=== PATIENT | female | born 1950 | race African-American/Black ===

== ENCOUNTER 2017-08-01 12:56 | Emergency (ER) | payer MEDICARE, OTHER ==
[~2017-08-01] VITALS: Ht 175.3 cm; Wt 68.0 kg
[~2017-08-01 12:56] MED LIST: DEXILANT30 MG PO; GLIMEPIRIDE4 MG PO; LISINOPRIL10 MG PO; NOVOLIN N100 UNIT/1
[2017-08-01 13:39] LABS: BASOPHILS % 0.5 % (0.0-1.0); EOSINOPHILS % 0.3 % (0.0-6.0); HEMOGLOBIN 15.9 g/dL (12.0-16.0); LYMPHOCYTES # (AUTO) 1.7 (1.0-3.2); LYMPHOCYTES % 29.8 % (18.0-39.1); MEAN CORPUSCULAR HEMOGLOBIN 30.7 pg (28-32); MEAN CORPUSCULAR HGB CONC 36.1 g/dL (31-35); MEAN CORPUSCULAR VOLUME 84.9 fL (81-99); MONOCYTES # (AUTO) 0.3 (0.2-0.8); MONOCYTES % 4.3 % (4.4-11.3); NEUTROPHILS # (AUTO) 3.7 (2.1-6.9); NEUTROPHILS % 64.4 % (38.7-80.0); PLATELET COUNT 237 x10e3/uL (140-360); RED BLOOD COUNT 5.18 x10e6/uL (3.6-5.1); RED CELL DISTRIBUTION WIDTH 12.7 % (11.7-14.4)
[2017-08-01 14:01] LABS: ALANINE AMINOTRANSFERASE 56 IU/L (0-55); ALBUMIN 4.2 g/dL (3.5-5.0); ALBUMIN/GLOBULIN RATIO 1.2 (0.8-2.0); ALKALINE PHOSPHATASE 107 IU/L (40-150); ANION GAP 15.7 mmol/L (8-16); BLOOD UREA NITROGEN 11 mg/dL (7-26); BUN/CREATININE RATIO 11 (6-25); CALCIUM 9.9 mg/dL (8.4-10.2); CARBON DIOXIDE 24 mmol/L (22-29); CHLORIDE 101 mmol/L (98-107); CREATININE, SERUM 1.04 mg/dL (0.57-1.11); EST GLOMERULAR FILTRATION RATE > 60 ML/MIN (60-); POTASSIUM 3.7 mmol/L (3.5-5.1); SODIUM 137 mmol/L (136-145)
[2017-08-01 14:05] LABS: GLUCOSE 414 mg/dL (74-118)
[2017-08-01 14:22] LABS: AMPHETAMINES SCREEN,URINE NEGATIVE (NEGATIVE); BENZODIAZEPINES SCREEN,URINE NEGATIVE (NEGATIVE); PHENCYCLIDINE SCREEN,URINE NEGATIVE (NEGATIVE)
[2017-08-01 14:23] LABS: CLARITY,URINE CLEAR (CLEAR); COLOR,URINE YELLOW (YELLOW); KETONES,URINE NEGATIVE (NEGATIVE); LEUKOCYTE ESTERASE ,URINE NEGATIVE (NEGATIVE); NITRITE,URINE NEGATIVE (NEGATIVE); PROTEIN,URINE DIPSTICK NEGATIVE (NEGATIVE); URINE UROBILINOGEN 0.2 mg/dL (0.2 - 1)
[2017-08-01 14:24] LABS: BILIRUBIN,URINE NEGATIVE (NEGATIVE)
[2017-08-01 14:28] LABS: EPITHELIAL CELLS,URINE FEW /LPF; MUCUS,URINE FEW (RARE); RBC,URINE 0-5 /HPF (0-5); WBC,URINE (MAN) 0-5 /HPF (0-5)
[2017-08-01] MEDS ORDERED: KETOROLAC TROMETHAMINE 30 MG/ML VIAL IV STA (14:51)
[2017-08-01] MEDS ORDERED: INSULIN LISPRO 100 UNIT/1 ML 3ML VIAL SQ STA (14:51)
[2017-08-01] MEDS ORDERED: SODIUM CHLORIDE 0.9% 1000ML 1,000 ML IV STA (14:51)
[2017-08-01] MEDS ORDERED: LORAZEPAM INJ 2 MG/ML VIAL IV ONE (15:00)
[2017-08-01] MEDS ORDERED: MORPHINE SULFATE 2 MG/ML SYR IV STA (16:30)
[2017-08-01] MEDS ORDERED: ONDANSETRON HCL INJ 2 MG/ML VIAL IV STA (16:30)
[2017-08-01 17:04] VITALS: BP 174/99
== END 2017-08-01 17:14 | disposition home or self-care (01) ==
LOC: ER 12:56
DX: M54.31 Sciatica, right side (principal); E11.65 Type 2 diabetes mellitus with hyperglycemia; I10 Essential (primary) hypertension
CPT/HCPCS: 36415; 80053; 80307; 81001; 82948; 85025; 93005; 99284; J1885; J2060; J2270; J2405; J7030

== ENCOUNTER → 2018-06-27 | Day surgery (SDC) | payer MEDICARE, OTHER ==
[~2018-06-27] MED LIST changes: +AMLODIPINE BESYL5 MG PO; +CALCIUM PO; +GABAPENTIN300 MG PO; +GLUCAGON FOR INJ 1 MG VIAL ONE; +HUMULIN N100 UNITS/ SQ; +IBUPROFEN200 MG PO; +MIDAZOLAM HCL 2 MG/2 ML VIAL ONE; +PROPOFOL IV EMULSION 10 MG/ML 50 ML VIAL ONE; +ULTRAM50 MG PO
--- OUTSIDE RECORDS SUMMARY | 2018-06-27 06:25 | XMS REPORT ---
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 Allergies, Adverse Reactions, Alerts Allergy Name Allergy Type Status Severity Reaction(s) Onset Date Inactive Date Treating Clinician Comments No Known Allergies DA Active U 2015-09-13 00:00:00 Medications This patient has no known medications.
--- OUTSIDE RECORDS SUMMARY | 2018-06-27 06:25 | XMS REPORT | Summary of Care ---
Author Author [facility] Address Unknown Phone Unavailable Encounter Dannyr_bolivarelmira(MICHAEL) [id number] Date(s): 09/01/17 - 09/30/17 [facility] Encounter Diagnosis Radiculopathy, lumbar region (Final) - 10/08/17 Low back pain (Final) - Muscle weakness (generalized) (Final) - Stiffness of unspecified joint, not elsewhere classified (Final) - Difficulty in walking, not elsewhere classified (Final) - Discharge Disposition: Home or Self Care Attending Physician: Tahira Martins MD Vital Signs No data available for this section Problem List No data available for this section Allergies, Adverse Reactions, Alerts No data available for this section Medications No data available for this section Results No data available for this section Immunizations No data available for this section Procedures No data available for this section Social History No data available for this section Assessment and Plan No data available for this section
--- OUTSIDE RECORDS SUMMARY | 2018-06-27 06:25 | XMS REPORT | Summary of Care ---
Author Author [facility] [place] Organization [facility] [place] Address Unknown Phone Unavailable Encounter HQ Encntr_alielmira(FIN) [id number] Date(s): 08/29/17 - 08/29/17 [facility] [place] [address] [place] [address] [phone] Encounter Diagnosis Spinal stenosis, lumbosacral region (Final) - 09/02/17 Spinal stenosis, lumbar region without neurogenic claudication (Final) - Intervertebral disc disorders with radiculopathy, lumbosacral region (Final) - Discharge Disposition: Home or Self Care Attending Physician: Tahira Martins MD Referring Physician: Tahira Martins MD Vital Signs No [...]
--- OUTSIDE RECORDS SUMMARY | 2018-06-27 06:25 | XMS REPORT | Continuity of Care Document ---
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 Active 07/29/2017 [facility] [place] Spinal stenosis, lumbar region without neurogenic claudication 03/18/2018 [facility] [place] Intervertebral disc disorders with radiculopathy, lumbosacral region 03/18/2018 [facility] [place] Low back pain 04/19/2018 [facility] [place] Muscle weakness 04/19/2018 [facility] [place] Stiffness of unspecified joint, not elsewhere classified 04/19/2018 [facility] [place] Difficulty in walking, not elsewhere classified 04/19/2018 [facility] [place] Medications Medication Details Route Status Patient Instructions Ordering Provider Order Date Source Dexlansoprazole (Dexilant) 30 Mg Patric. Three Times A Day Active THERAPEUTIC INTERCHANGED WITH PROTONIX PER [facility] Glimepiride 4 Mg Tablet Daily [facility] Lisinopril 10 Mg Tablet Daily [facility] Nph, Human Insulin Isophane (Novolin N) 100 Unit/1 Ml Vial [facility] Allergies, Adverse Reactions, Alerts Substance Category Reaction Severity Reaction type Status Date Reported Comments Source Immunizations Immunization Date Given Site Status Last Updated Comments Source Results Order Name Results Value Reference Range Date Interpretation Comments Source Liver US Liver US EXAM: Hepatic ultrasound. CLINICAL HX: Hepatitis C. Age: 67 years. Gender: Female. TECHNIQUE: Grayscale and Doppler sonogram of the liver. COMPARISON: None. FINDINGS: Midline structures: -- Pancreas: Visualized portion is unremarkable. -- Aorta: Visualized portion is unremarkable. -- IVC: Visualized portion is unremarkable. Liver: -- Parenchyma: Homogenous echotexture. -- Contour: Smooth. -- Length: 14.2 cm. -- Other: None. Hepatic vessels: -- Portal veins: Normal directional flow. Main portal vein measures 0.8 cm. -- Hepatic veins: Normal directional flow. -- Hepatic artery: Resistive index 0.55. Gallbladder: -- Intraluminal gallstones: Negative. -- Wall: No thickening. -- Sonographic Boland sign: Negative. -- Other: None. Common bile duct: -- Diameter: 2.3 cm. Other: Empty right renal fossa. Right kidney is likely in the pelvis that is not well evaluated. Left kidney is present in the left renal fossa. IMPRESSION: 1. Unremarkable appearance of the liver. 2. Likely pelvic location of the right kidney. If further evaluation is desired, consider cross-sectional imaging. 11/26/2017 - - Read by: Rajendra James MD Dictated Date/time: 11/26/17 13:19 Electronically Signed by: Rajendra James MD 11/26/17 15:52 FINAL REPORT NED [facility] Spine lumbar wo contrast MRI Spine lumbar wo contrast MRI EXAM: MRI LUMBAR SPINE WITHOUT CONTRAST DATE: 08/29/2017 1:17 PM CDT . ORDERING PHYSICIAN: Tahira Martins MD CLINICAL INDICATION: M54.16 Radiculopathy, lumbar region - M54.16 Radiculopathy, lumbar region; TECHNIQUE: Multiplanar, multisequence MRI lumbar spine without IV contrast COMPARISON: July 29, 2017 lumbar x-rays FINDINGS: For the purposes of enumeration, the lowest well formed intervertebral disc was counted as L5-S1 on this exam. INTRASPINAL CONTENTS/CONUS: The conus terminates at L1-L2. No definite dural based lesion. VERTEBRAE: The vertebrae are normal in height. There is loss of normal lordosis.. No focal suspicious bone marrow signal abnormality. PARASPINAL SOFT TISSUES: No edema or definite masses. No aortic aneurysm. DISC SPACES, SPINAL CANAL, AND NEURAL FORAMINA: The lumbar pedicles are short. T12-L1. Intervertebral disc height and signal are maintained. Posterior elements are normal. There is no stenosis. L1-L2. Dehydrated disc with diffuse disc bulge. Facets are mildly enlarged. Central canal measures 10 mm straight lateral recesses are patent. Foraminal disc bulge narrows the right neural foramen with but does not contact the exiting L1 nerve root. L2-L3. Dehydrated disc with small diffuse disc bulge. There is bilateral facet hypertrophy. Central canal measures 10 mm. Lateral recesses are patent. Foraminal disc bulge narrows the neural foramina without contacting the exiting L2 nerve roots. L3-L4. Desiccated disc with circumferential disc osteophyte complex. Facets are unremarkable. Central canal measures 8 mm. Left lateral recess is narrowed with no mass effect on the descending L4 nerve root. There is mild narrowing of the neural foramina with no contact of the exiting L3 nerve roots. L4-L5. Dehydrated disc with diffuse disc bulge and annular fissuring. There is left greater than right facet hypertrophy. Central canal measures 8 mm. Lateral recesses are narrowed with disc and facets contacting the L5 nerve roots. There is moderate narrowing of the neural foramina with disc and/or facets minimally contacting the exiting L4 nerve roots bilaterally. L5-S1. Dehydrated disc with diffuse disc bulge and superimposed broad-based 5 mm central zone disc protrusion. There is bilateral facet hypertrophy. Central canal measures 3 mm with crowded cauda equina. Lateral recesses are effaced, and disc protrusion is compressing the descending right S1 nerve root. There is moderate to severe right and [id number] left neural foramen narrowing. IMPRESSION: 1. Severe L5-S1 spinal stenosis and right lateral recess stenosis. Disc protrusion is compressing the right descending S1 nerve root 2. Mild L3-4 and L4-5 central canal stenosis without cauda equina mass effect 3. Please see additional comments above 08/29/2017 - - Read by: Austen Malcolm MD Dictated Date/time: 08/29/17 15:54 Electronically Signed by: Austen Malcolm MD 08/29/17 16:00 FINAL REPORT NED [facility] Automated urine sediment leukocyte count by microscopy (number/high power field) Automated urine sediment leukocyte count by microscopy (number/high power field) null 0 - 5 08/01/2017 [facility] Bacteria detection in urine sediment by light microscopy Bacteria detection in urine sediment by light microscopy NONE NONE 08/01/2017 [facility] Barbiturates screen, urine Barbiturates screen, urine NEGATIVE NEGATIVE 08/01/2017 [facility] Epithelial cells detection in urine sediment by light microscopy Epithelial cells detection in urine sediment by light microscopy FEW NONE 08/01/2017 [facility] Erythrocytes detection in urine sediment by light microscopy Erythrocytes detection in urine sediment by light microscopy null 0 - 5 08/01/2017 [facility] Mucus detection in urine sediment by light microscopy Mucus detection in urine sediment by light microscopy FEW RARE 08/01/2017 [facility] Specific gravity of Urine by Test strip Specific gravity of Urine by Test strip 1.010 1.010 - 1.025 08/01/2017 [facility] Urine amphetamines detection by screen method > 1000 ng/mL Urine amphetamines detection by screen method > 1000 ng/mL NEGATIVE NEGATIVE 08/01/2017 [facility] Urine benzodiazepines detection by screening method Urine benzodiazepines detection by screening method NEGATIVE NEGATIVE 08/01/2017 [facility] Urine cannabinoids detection by screening method Urine cannabinoids detection by screening method POSITIVE NEGATIVE 08/01/2017 [facility] Urine clarity Urine clarity CLEAR CLEAR 08/01/2017 [facility] Urine cocaine measurement (mass/volume) Urine cocaine measurement (mass/volume) NEGATIVE NEGATIVE 08/01/2017 [facility] Urine color determination Urine color determination YELLOW YELLOW 08/01/2017 [facility] Urine erythrocytes detection Urine erythrocytes detection NEGATIVE NEGATIVE 08/01/2017 [facility] Urine glucose detection Urine glucose detection 3+ NEGATIVE 08/01/2017 [facility] Urine ketones detection by automated test strip Urine ketones detection by automated test strip NEGATIVE NEGATIVE 08/01/2017 [facility] Urine leukocyte esterase detection by dipstick Urine leukocyte esterase detection by dipstick NEGATIVE NEGATIVE 08/01/2017 [facility] Urine methadone screen Urine methadone screen NEGATIVE NEGATIVE 08/01/2017 [facility] Urine nitrite detection Urine nitrite detection NEGATIVE NEGATIVE 08/01/2017 [facility] Urine opiates screening test Urine opiates screening test NEGATIVE NEGATIVE 08/01/2017 [facility] Urine pH measurement by automated test strip Urine pH measurement by automated test strip 6.5 5 - 7 08/01/2017 [facility] Urine phencyclidine detection by screening method Urine phencyclidine detection by screening method NEGATIVE NEGATIVE 08/01/2017 [facility] Urine protein measurement by test strip (mass/volume) Urine protein measurement by test strip (mass/volume) NEGATIVE NEGATIVE 08/01/2017 [facility] Urine total bilirubin measurement (mass/volume) Urine total bilirubin measurement (mass/volume) NEGATIVE NEGATIVE 08/01/2017 [facility] Urine urobilinogen measurement by test strip (mass/volume) Urine urobilinogen measurement by test strip (mass/volume) 0.2 0.2 - 1 08/01/2017 [facility] Urine Methamphetamines Screen NEGATIVE NEGATIVE 08/01/2017 [facility] Automated blood basophil count (count/volume) Automated blood basophil count (count/volume) 0.0 0.0 - 0.1 08/01/2017 [facility] Automated blood basophil count as percentage of total leukocytes Automated blood basophil count as percentage of total leukocytes 0.5 0.0 - 1.0 08/01/2017 [facility] Automated blood eosinophil count Automated blood eosinophil count 0.0 0.0 - 0.4 08/01/2017 [facility] Automated blood eosinophil count as percentage of total leukocytes Automated blood eosinophil count as percentage of total leukocytes 0.3 0.0 - 6.0 08/01/2017 [facility] Automated blood hematocrit (volume fraction) Automated blood hematocrit (volume fraction) 44.0 34.2 - 44.1 08/01/2017 [facility] Automated blood lymphocyte count as percentage ot total leukocytes Automated blood lymphocyte count as percentage ot total leukocytes 29.8 18.0 - 39.1 08/01/2017 [facility] Automated blood monocyte count as percentage of total leukocytes Automated blood monocyte count as percentage of total leukocytes 4.3 4.4 - 11.3 08/01/2017 [facility] Automated blood neutrophil count Automated blood neutrophil count 3.7 2.1 - 6.9 08/01/2017 [facility] Automated blood platelet count (count/volume) Automated blood platelet count (count/volume) 237 140 - 360 08/01/2017 [facility] Automated blood segmented neutrophil count as percentage of total leukocytes Automated blood segmented neutrophil count as percentage of total leukocytes 64.4 38.7 - 80.0 08/01/2017 [facility] Automated erythrocyte mean corpuscular hemoglobin (mass per erythrocyte) Automated erythrocyte mean corpuscular hemoglobin (mass per erythrocyte) 30.7 28 - 32 08/01/2017 [facility] Automated erythrocyte mean corpuscular hemoglobin concentration measurement (mass/volume) Automated erythrocyte mean corpuscular hemoglobin concentration measurement (mass/volume) 36.1 31 - 35 08/01/2017 [facility] Automated erythrocyte mean corpuscular volume Automated erythrocyte mean corpuscular volume 84.9 81 - 99 08/01/2017 [facility] Blood erythrocytes automated count (number/volume) Blood erythrocytes automated count (number/volume) 5.18 3.6 - 5.1 08/01/2017 [facility] Blood hemoglobin measurement (moles/volume) Blood hemoglobin measurement (moles/volume) 15.9 12.0 - 16.0 08/01/2017 [facility] Blood leukocytes automated count (number/volume) Blood leukocytes automated count (number/volume) 5.81 4.8 - 10.8 08/01/2017 [facility] Blood lymphocytes count (number/volume) Blood lymphocytes count (number/volume) 1.7 1.0 - 3.2 08/01/2017 [facility] Blood monocytes automated count (number/volume) Blood monocytes automated count (number/volume) 0.3 0.2 - 0.8 08/01/2017 [facility] Estimated glomerular filtration rate (GFR) determination Estimated glomerular filtration rate (GFR) determination null 60 08/01/2017 [facility] Glucose measurement Glucose measurement 414 74 - 118 08/01/2017 [facility] Plasma globulin measurement (mass/volume) Plasma globulin measurement (mass/volume) 3.6 2.3 - 3.5 08/01/2017 [facility] Serum or plasma alanine aminotransferase measurement (enzymatic activity/volume) Serum or plasma alanine aminotransferase measurement (enzymatic activity/volume) 56 0 - 55 08/01/2017 [facility] Serum or plasma albumin measurement (mass/volume) Serum or plasma albumin measurement (mass/volume) 4.2 3.5 - 5.0 08/01/2017 [facility] Serum or plasma albumin/globulin mass ratio Serum or plasma albumin/globulin mass ratio 1.2 0.8 - 2.0 08/01/2017 [facility] Serum or plasma alkaline phosphatase measurement (enzymatic activity/volume) Serum or plasma alkaline phosphatase measurement (enzymatic activity/volume) 107 40 - 150 08/01/2017 [facility] Serum or plasma anion gap Serum or plasma anion gap 15.7 8 - 16 08/01/2017 [facility] Serum or plasma calcium measurement (mass/volume) Serum or plasma calcium measurement (mass/volume) 9.9 8.4 - 10.2 08/01/2017 [facility] Serum or plasma carbon dioxide, total measurement (moles/volume) Serum or plasma carbon dioxide, total measurement (moles/volume) 24 22 - 29 08/01/2017 [facility] Serum or plasma chloride measurement (moles/volume) Serum or plasma chloride measurement (moles/volume) 101 98 - 107 08/01/2017 [facility] Serum or plasma creatinine measurement (mass/volume) Serum or plasma creatinine measurement (mass/volume) 1.04 0.57 - 1.11 08/01/2017 [facility] Serum or plasma potassium measurement (moles/volume) Serum or plasma potassium measurement (moles/volume) 3.7 3.5 - 5.1 08/01/2017 [facility] Serum or plasma protein measurement (mass/volume) Serum or plasma protein measurement (mass/volume) 7.8 6.5 - 8.1 08/01/2017 [facility] Serum or plasma sodium measurement (moles/volume) Serum or plasma sodium measurement (moles/volume) 137 136 - 145 08/01/2017 [facility] Serum or plasma total bilirubin measurement (mass/volume) Serum or plasma total bilirubin measurement (mass/volume) 0.5 0.2 - 1.2 08/01/2017 [facility] Serum or plasma urea nitrogen measurement (mass/volume) Serum or plasma urea nitrogen measurement (mass/volume) 11 7 - 26 08/01/2017 [facility] Serum or plasma urea nitrogen/creatinine mass ratio Serum or plasma urea nitrogen/creatinine mass ratio 11 6 - 25 08/01/2017 [facility] Red Cell Distribution Width 12.7 11.7 - 14.4 08/01/2017 [facility] IM GRANULOCYTES % 0.7 0.0 - 1.0 08/01/2017 [facility] Absolute Immature Granulocyte (auto 0.04 0 - 0.1 08/01/2017 [facility] Aspartate Amino Transf (AST/SGOT) 60 5 - 34 08/01/2017 [facility] Spine lumbar 2 or 3 views DX Spine lumbar 2 or 3 views DX EXAMINATION: Lumbar spine 2 to 3 views HISTORY: - M47.817 Spondylosis without myelopathy or radiculopathy, lumbosacral region; lumbar spondylosis FINDINGS: Two to three views of the lumbar spine are performed without comparison. There is mild levocurvature of the lumbar spine centered at L1-L2. There is hypolordosis of the lumbar spine without listhesis. The lumbar vertebral body heights are normal without compression fracture. There is moderate L1-2, mild L2-3, moderate L3-L4, mild to moderate L4-L5, and moderate L5-S1 degenerative disc disease. There is bilateral lower lumbar facet osteoarthritis. The sacral ala appear intact. IMPRESSION: 1. Mild levocurvature of the lumbar spine centered at L1-L2. 2. Multilevel degenerative disc disease of the lumbar spine as described above, most severe at L1-2, L3-L4, and L5-S1, with bilateral lower lumbar facet osteoarthritis. 07/29/2017 - - Read by: Jae Prather MD Dictated Date/time: 07/31/17 08:53 Electronically Signed by: Jae Prather MD 07/31/17 08:55 FINAL REPORT NED [facility] Vital Signs Vital Sign Value Date Comments Source Encounters Location Location Details Encounter Type Encounter Number Reason For Visit Attending Provider ADM Date DC Date Status Source [facility] [place] [facility] [id number] Renato Paul 07/29/2017 07/30/2017 N[facility] Departed Emergency Room [id number] DALTON BLANCA MD 08/01/2017 08/01/2017 [facility] [place] [facility] [id number] [facility] 08/29/2017 08/30/2017 NED D[facility] [place] OP Therapy Patients [id number] [facility] 09/01/2017 10/01/2017 [place] [place] [facility] [place] Out[facility] [id number] Jocelyne Enriquez 11/26/2017 11/27/2017 NED [facility] Procedures Procedure Code Date Perfomer Comments Source
--- OUTSIDE RECORDS SUMMARY | 2018-06-27 06:25 | XMS REPORT | Summary of Care ---
Author Author [facility] [place] Organization [facility] [place] Address Unknown Phone Unavailable Encounter HQ Encntr_alias(FIN) [id number] Date(s): 11/26/17 - 11/26/[address] [facility] [place] [address] [place] [phone] Encounter Diagnosis Unspecified viral hepatitis C without hepatic coma (Final) - 12/02/17 Discharge Disposition: Home or Self Care Attending Physician: Jocelyne Enriquez MD Referring Physician: Jocelyne Enriquez MD Vital Signs No data available for [...]
--- NOTE | 2018-06-27 07:10 | NUR ---
SPIRITUAL CARE - Pre-Surgery Assessment: Pt in bed. Pt reported supportive attention from family and friends. Intervention: I provided pastoral presence, hospitality, and sympathetic listening. I acquainted pt with availability of repairer switchgear while hospitalized. Outcome: Pt expressed appreciation for visit. No need for follow up indicated at this time. [facility] Spiritual Care Department O: [phone] Pager: [phone] ([phone] number calling from)
[2018-06-27 09:10] VITALS: BP 129/74
== END | disposition home or self-care (01) ==
LOC: OR 05:59
PROVIDERS: ATTEND Internal Medicine Gastroenterology
DX: K31.89 Other diseases of stomach and duodenum (principal); K29.50 Unspecified chronic gastritis without bleeding; K44.9 Diaphragmatic hernia without obstruction or gangrene; K57.30 Diverticulosis of large intestine without perforation or abscess without bleeding; K62.89 Other specified diseases of anus and rectum; K74.69 Other cirrhosis of liver; K64.8 Other hemorrhoids; B19.20 Unspecified viral hepatitis C without hepatic coma; E11.9 Type 2 diabetes mellitus without complications; I10 Essential (primary) hypertension; D72.820 Lymphocytosis (symptomatic); F17.210 Nicotine dependence, cigarettes, uncomplicated; Z01.810 Encounter for preprocedural cardiovascular examination; Z79.4 Long term (current) use of insulin
CPT/HCPCS: 36415; 43239; 45380; 82948; 93005; J1610; J2250; J2704; 45378

== ENCOUNTER → 2020-09-02 | Outpatient (CLI) | payer OTHER ==
[~2020-09-02] MED LIST changes: -GLUCAGON FOR INJ 1 MG VIAL ONE; -MIDAZOLAM HCL 2 MG/2 ML VIAL ONE; -PROPOFOL IV EMULSION 10 MG/ML 50 ML VIAL ONE
== END ==
LOC: US 07:33
PROVIDERS: ATTEND Internal Medicine
DX: K74.60 Unspecified cirrhosis of liver (principal)
CPT/HCPCS: 76705

== ENCOUNTER 2022-08-09 09:04 | Emergency (ER) | payer MEDICARE ==
[~2022-08-09] VITALS: Ht 175.3 cm; Wt 68.0 kg
[~2022-08-09 09:04] MED LIST changes: +PREDNISONE20 MG PO; +ULTRAM 50MG50 MG PO
[2022-08-09 09:17] VITALS: O2SAT 100
[2022-08-09] MEDS ORDERED: METHYLPREDNISOLONE SOD SUCC 40 MG/ML VIAL 1ML IM ONE (09:30)
[2022-08-09] MEDS ORDERED: DEXAMETHASONE SOD PHOS 10 MG/1 ML VIAL IM ONE (09:30)
[2022-08-09] MEDS ORDERED: ULTRAM 50MG50 MG PO (09:31)
[2022-08-09 09:48] VITALS: BP 128/90; PULSE 70; RESP 18
== END 2022-08-09 09:50 | disposition home or self-care (01) ==
LOC: ER 09:10
DX: M54.50 Low back pain, unspecified (principal); M47.898 Other spondylosis, sacral and sacrococcygeal region; I10 Essential (primary) hypertension; E11.9 Type 2 diabetes mellitus without complications; E78.5 Hyperlipidemia, unspecified; G89.29 Other chronic pain
CPT/HCPCS: 99282; J1100